=== PATIENT | female | born 1990 | race African-American/Black ===

== ENCOUNTER 2017-04-14 16:52 | Emergency (ER) | payer OTHER ==
[~2017-04-14] VITALS: Ht 167.6 cm; Wt 90.7 kg
[~2017-04-14 16:52] MED LIST: CIPRO500 M1 PO; FLAGYL500 MG PO; GOOD SENSE IBU200 MG PO; NORCO 5-325 TA1 EACH PO; TRAMADOL50 MG PO; VICODIN 300 MG-1 TAB PO; VICODIN 500 MG-1 TAB PO
[2017-04-14 17:05] VITALS: BP 156/89
--- NOTE | 2017-04-14 18:02 | ED THROAT/DENTAL COMPLAINT ---
History of Present Illness General Chief Complaint: Sore Throat, Dental Pain Stated Complaint: TOOTH PAIN Source: patient, old records Exam Limitations: no limitations Vital Signs & Intake/Output Vital Signs & Intake/Output Vital Signs Date Time Temp Pulse Resp B/P B/P Pulse O2 O2 Flow FiO2 Mean Ox Delivery Rate 04/14 1705 98.7 80 15 156/89 99 Room Air Room Air Allergies Coded Allergies: aripiprazole (From Abilify) (Severe, ITCHY/RESTLESS 04/14/17) adhesive tape (PAPER TAPE OK PER PT, OTHER TAPE TURNS SKIN RED 04/14/17) amphetamine (From Adderall) (HAND AND FEET SWELLING 04/14/17) dextroamphetamine (From Adderall) (HAND AND FEET SWELLING 04/14/17) latex (SWELLING, REDNESS AND BUMPS 04/14/17) Reconcile Medications Amoxicillin/Potassium Clav (Augmentin 875-125 Tablet) 875 MG-125 MG TABLET 1 TAB PO BID dental Amoxicillin/Potassium Clav (Augmentin 875-125 Tablet) 875 MG-125 MG TABLET 1 TAB PO BID dental Hydrocodone/Acetaminophen (Addison 5-325 Tablet) 5 MG-325 MG TABLET 1 TAB PO Q4- 6 PRN PRN pain Ibuprofen (Advil) 200 MG CAPSULE 4 CAP PO PRN PAIN (Reported) Triage Note: PT TO ED FOR C/C OF DENTAL PAIN IN R UPPER MOUTH. PT REPORTS SHE HAS A HOLE IN HER TOOTH. "I MAXED OUT ON MOTRIN AND THE PAIN IS STILL SO BAD IT'S MOVING TO MY FACE AND EYE NOW." PT DENIES DIFFICULTY SWALLOWING, DENIES FEVER/CHILLS. Triage Nurses Notes Reviewed? yes Onset: Abrupt Duration: day(s): (2), constant Timing: recent history Injury Environment: home Severity: moderate Severity Numbers: 10 Modifying Factors: Worsens With: eating. Associated Symptoms: DENIES : No Patient currently breastfeeds: No HPI: 26-year-old female presents complaining of right upper dental pain for the past 2 days after she states a filling came out of the tooth. She's had moderate to severe aching pain to her mouth since. Pain is worse with cold air eating drinking. She is been taking Avapro without improvement. She has not called her dentist yet. She denies any fever chills gingival swelling sore throat difficulty swallowing chest pain shortness of breath. No other associated symptoms,radiation of pain (NATHEN SALES) Past History Travel History Traveled to [place] past 21 day No Medical History Any Pertinent Medical History? 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 No (NATHEN SALES) Review of Systems Review of Systems Constitutional: Reports: see HPI. All Other Systems: Reviewed and Negative Comments Review of systems: See HPI, All other systems negative. Constitutional, no chills no fever, no malaise no weight loss HEENT: No visual changes no sore throat no congestion, no ear pain Cardiovascular: No chest pain , no palpitation , no orthopnea Skin: no rashes, no change in skin Respiratory: No dyspnea no cough no sputum no hemoptysis GI: No nausea no vomiting, no diarrhea, no bloating/constipation : No dysuria No hematuria, no frequency, no discharge Muscle skeletal: No joint pain, no joint swelling, no back pain, no neck pain, Neurologic: No numbness no confusion, no headache Psych: No stress no depression,. Heme/endocrine: No bruising no bleeding Immunology: No lymphadenopathy (NATHEN SALES) Physical Exam Physical Exam General Appearance: well developed/nourished, no apparent distress, alert, awake Mouth/Throat: dental tenderness Comments: Well-developed well-nourished patient in no apparent distress. Head/Face: Atraumatic, no maxillary/frontal sinus tenderness, no facial swelling Eyes: PERRL, EOMI, Ear:External auditory canals clear, no erythema Nose: atraumatic.Normal inspection: Throat: Moist mucous membranes.Pharynx normal. No pharyngeal erythema/exudate seen. No stridor/drooling or assymetry. No swelling or edema. Right upper dental tenderness no gingival swelling no trismus Neck: Supple,, FROM Back: FROM Cardiovascular: Regular rate and rhythms no murmurs rub Respiratory: Chest nontender.There were no bony deformities, no asymmetry. No respiratory distress. Patient speaking in full complete sentences. Breath sounds clear to auscultation bilaterally: NO W/R/R Extremities: full range of motion Neuro: awake, alert, and oriented to person, place and time. There were no obvious focal neurologic abnormalities. Skin: Warm & dry;No appreciable rash on exposed skin Psych: Mood affect normal, normal memory normal judgment. Core Measures ACS in differential dx? No Severe Sepsis Present: No Septic Shock Present: No (NATHEN SALES) Progress Differential Diagnosis: epiglottitis, Ludwigs angina, odontogenic abscess, poornima- tonsillar abscess, stomatitis/gingivitis, tooth fracture Plan of Care: I discussed with the patient at length all of their results. I had an extensive conversation regarding need for close follow up with their dentist this week as well as return precautions. I answered all of their questions, they feel comfortable with the plan and follow-up care. I discussed with the patient/family the medications that they will receive. I gave them signs and symptoms that could indicate an adverse reaction. I have advised them to limit their activities until they can see how they respond to the medication. (NATHEN SALES) Departure Departure Time of Disposition: 1807 Disposition: HOME OR SELF CARE Condition: Stable Clinical Impression Primary Impression: Pain, dental Referrals: PATIENT HAS NO PRIMARY CARE DR (PCP/Family) Additional Instructions: Follow-up with your dentist tomorrow. Augmentin as discussed ibuprofen 838 hours. Vicodin for breakthrough pain this will make you drowsy it is a narcotic and highly addictive no driving or drinking alcohol while taking this was sent to [facility] Departure Forms: Customer Survey General Discharge Information Prescriptions: Current Visit Scripts Amoxicillin/Potassium Clav (Augmentin 875-125 Tablet) 1 TAB PO BID #14 TAB Amoxicillin/Potassium Clav (Augmentin 875-125 Tablet) 1 TAB PO BID #14 TAB Hydrocodone/Acetaminophen (Addison 5-325 Tablet) 1 TAB PO Q4-6 PRN PRN pain #10 TAB (NATHEN SALES) PA/BUSINESS RULES DEVELOPER Co-Sign Statement Statement: ED Attending supervision documentation- [] I saw and evaluated the patient. I have also reviewed all the pertinent lab results and diagnostic results. I agree with the findings and the plan of care as documented in the PA's/BUSINESS RULES DEVELOPER's documentation. [X] I have reviewed the ED Record and agree with the PA's/BUSINESS RULES DEVELOPER's documentation. [] Additions or exceptions (if any) to the PAs/BUSINESS RULES DEVELOPER's note and plan are summarized below: [] (LUNA WALLACE,NICOLE Molina)
[2017-04-14] MEDS ORDERED: ADVIL200 M1 PO (18:03)
[2017-04-14] MEDS ORDERED: AUGMENTIN 875-1 EACH PO ×2 (18:09→18:28)
[2017-04-14] MEDS ORDERED: NORCO 5-325 TA1 EACH PO ×2 (18:09→18:28)
== END 2017-04-14 18:18 ==
LOC: ERH 16:52
DX: K08.89 Other specified disorders of teeth and supporting structures (principal)

== ENCOUNTER 2018-02-25 10:08 | Emergency (ER) | payer OTHER ==
[~2018-02-25] VITALS: Ht 167.6 cm; Wt 90.7 kg
[~2018-02-25 10:08] MED LIST changes: +ADVIL200 M1 PO; +AUGMENTIN 875-1 EACH PO
--- NOTE | 2018-02-25 11:19 | ED UPPER/LOWER EXTREMITY COMPL ---
History of Present Illness General Chief Complaint: Upper Extremity Injury Stated Complaint: RT ARM/SHOULDER PAION S/P FALL Source: patient Exam Limitations: no limitations Vital Signs & Intake/Output Vital Signs & Intake/Output Vital Signs Date Time Temp Pulse Resp B/P B/P Pulse O2 O2 Flow FiO2 Mean Ox Delivery Rate 02/25 1317 98.2 69 16 120/64 100 Room Air 02/25 1019 98.6 79 18 142/85 98 Room Air Allergies Coded Allergies: aripiprazole (From Abilify) (Severe, ITCHY/RESTLESS 04/14/17) adhesive tape (PAPER TAPE OK PER PT, OTHER TAPE TURNS SKIN RED 04/14/17) amphetamine (From Adderall) (HAND AND FEET SWELLING 04/14/17) dextroamphetamine (From Adderall) (HAND AND FEET SWELLING 04/14/17) latex (SWELLING, REDNESS AND BUMPS 04/14/17) Reconcile Medications Cyclobenzaprine HCl 10 MG TABLET 1 TAB PO TID SPASMS Ibuprofen 800 MG TABLET 1 TAB PO TID pain Triage Note: 27 YO FEMALE TO TRIAGE C/O R SHOULDER/UPPER & LOWER ARM/HAND PAIN SINCE YESTERDAY S/P FALL. STATES SHE TRIPPED AND LANDED WITH HER HANDS DOWN ON THE GROUND. DENIES HEADSTRIKE. PT REFUSING SHOULDER SLING IN TRIAGE, STATES IT MAKES IT HURT MORE. DENIES CHANCE OF , JUST FININSHED MENSES Triage Nurses Notes Reviewed? yes Onset: Abrupt Timing: recent history No Modifying Factors: none HPI: 27-year-old female comes into the emergency room for further evaluation of pain to her right shoulder right elbow right wrist and right hand. Patient reports that she fell yesterday. She came down on her right arm. She has significant pain. Difficulty lifting. She also complains of some pain to her right rib area. She denies hitting her head. Denies any neck pain. Denies any pain anywhere else. Sharp. Continuous. Past History Travel History Traveled to [place] past 21 day No Medical History Any Pertinent Medical History? 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 No Review of Systems Review of Systems Constitutional: Reports: no symptoms. EENTM: Reports: no symptoms. Respiratory: Reports: no symptoms. Cardiovascular: Reports: no symptoms. Gastrointestinal/Abdominal: Reports: no symptoms. Genitourinary: Reports: no symptoms. Musculoskeletal: Reports: see HPI. Skin: Reports: no symptoms. Neurological/Psychological: Reports: no symptoms. Hematologic/Endocrine: Reports: no symptoms. Immunological: Reports: no symptoms. All Other Systems: Reviewed and Negative Physical Exam Physical Exam General Appearance: well developed/nourished, mild distress Head: atraumatic Eyes: Bilateral: normal appearance. Ears, Nose, Throat: normal ENT inspection, hearing grossly normal Neck: normal inspection Cardiovascular/Respiratory: no respiratory distress Back: normal inspection Shoulder Right: soft tissue tenderness, limited range of motion Elbow Right: soft tissue tenderness, limited range of motion Neurologic/Tendon: normal sensation, normal motor functions, normal tendon functions, responds to pain, no evidence tendon injury, no pulse deficit Skin: intact, normal color, warm/dry Progress Differential Diagnosis: contusion, dislocation, fracture, septic arthritis, sprain, tendon injury Plan of Care: Orders Procedure Date/time Status Durable Medical Equipment 02/25 1331 Active URINE 02/25 1020 Complete Laboratory Tests 02/25/18 1028: Urine Test NEGATIVE Diagnostic Imaging: Viewed by Me: Radiology Read. Discussed w/RAD: Radiology Read. Radiology Impression: PATIENT: ULISSES DAN PRESENT AGE: 27 PATIENT ACCOUNT NO: [id number] : 91 LOCATION: [facility] ORDERING PHYSICIAN: Honorio CORONA SERVICE DATE: 02/25/18 EXAM TYPE : RAD - XRY-ELBOW 3 OR MORE VIEWS, R; XRY-FOREARM, RIGHT; XRY-HAND TWO VIEWS R EXAMINATION: XR ELBOW, RIGHT XR FOREARM, RIGHT XR HAND, RIGHT CLINICAL INFORMATION: Status post fall. Right upper extremity pain. COMPARISON: None TECHNIQUE: Right elbow 4 views; AP, bilateral oblique and lateral. Right forearm 2 views; AP and lateral. Right hand 2 views; PA and lateral. FINDINGS: Right elbow: No evidence of acute fracture or dislocation. No evidence of joint effusion. No abnormality of the bones, joints or soft tissues is demonstrated. Right forearm: No evidence of fracture or dislocation. The osseous structures and soft tissues are unremarkable. Wrist joint is in normal alignment. Right hand: No evidence of acute fracture or dislocation. No abnormality of the bones, joints or soft tissues is demonstrated. IMPRESSION: No evidence of acute fracture or dislocation in the right elbow, right forearm and right hand. No evidence of radiopaque foreign body or soft tissue air. DICTATED BY: Oziel Pearce MD DATE/TIME DICTATED:02/25/181248 GROOVER RUNNER:VIRIDIANA DATE/TIME TRANSCRIBED:02/25/181248 CONFIDENTIAL, DO NOT COPY WITHOUT APPROPRIATE AUTHORIZATION. <Electronically signed in Other Vendor System> SIGNED BY: Oziel Pearce MD 02/25/18 1256, PATIENT: ULISSES DAN PRESENT AGE: 27 PATIENT ACCOUNT NO: [id number] : 91 LOCATION: ER ORDERING PHYSICIAN: Honorio CORONA SERVICE DATE: 02/25/18 EXAM TYPE : RAD - XRY-RIBS UNILATERAL-RIGHT EXAMINATION: XR RIBS, RIGHT CLINICAL INFORMATION: Fall. Pain everywhere. Cannot localize COMPARISON: None TECHNIQUE: PA view of the chest with AP and oblique views of the right ribs FINDINGS: Lungs are clear. No consolidation, pneumothorax, or pleural effusion. The cardiomediastinal silhouette and pulmonary vasculature are normal. Osseous structures are unremarkable. Ribs are intact. No fractures are identified. IMPRESSION: No acute pulmonary disease. No rib fracture seen. DICTATED BY: Gennaro Little MD DATE/TIME DICTATED:02/25/181307 GROOVER RUNNER:VIRIDIANA DATE/TIME TRANSCRIBED:02/25/181307 CONFIDENTIAL, DO NOT COPY WITHOUT APPROPRIATE AUTHORIZATION. <Electronically signed in Other Vendor System> SIGNED BY: Gennaro Little MD 02/25/18 1312, PATIENT: ULISSES DAN PRESENT AGE: 27 PATIENT ACCOUNT NO: [id number] : 91 LOCATION: ER ORDERING PHYSICIAN: Honorio CORONA SERVICE DATE: 02/25/181117 EXAM TYPE: RAD - XRY-SHOULDER COMPLETE-RIGHT EXAMINATION: XR SHOULDER, RIGHT CLINICAL INFORMATION: Status post fall. Right shoulder pain. COMPARISON: None TECHNIQUE: Internal rotation, Grashey and transscapular views of the right shoulder. FINDINGS: The bones and soft tissues are normal. No fracture. Glenohumeral and acromioclavicular alignment is anatomic with normal joint space. No abnormal soft tissue calcifications. IMPRESSION: No evidence of acute fracture or dislocation in the right shoulder. DICTATED BY: Oziel Pearce MD DATE/ TIME DICTATED:02/25/181241 GROOVER RUNNER:VIRIDIANA DATE/TIME TRANSCRIBED: 02/25/181241 CONFIDENTIAL, DO NOT COPY WITHOUT APPROPRIATE AUTHORIZATION. < Electronically signed in Other Vendor System> SIGNED BY: Oziel Pearce MD 02/09 Departure Departure Disposition: HOME OR SELF CARE Condition: Stable Clinical Impression Primary Impression: Sprain of right shoulder Secondary Impressions: Sprain of right hand Referrals: Patient Has No Primary Care Dr (PCP/Family) Mikel WALLACE,Gatito Molina Additional Instructions: Take ibuprofen and Flexeril as prescribed. Follow-up with your primary care doctor. Return if any concerns worsening symptoms. Please go over all results of today's visit with your primary care doctor. Contact your primary care doctor to let them know you were here in the emergency room. There may be nonspecific findings which may not be related to your visit today here in the emergency room but may require further evaluation and chronic monitoring by your primary care doctor. If you had a laceration today the chance of foreign body always remains. You should follow-up with your primary care doctor for recheck in 3-5 days for a wound check. If you had an x-ray done there is a chance that a fracture could have been missed on initial read and you should follow-up with your primary care doctor for repeat x-rays if symptoms persist. If your blood pressure was elevated here in the emergency room please have rechecked by [facility] primary care doctor within the next 48. If you were prescribed a narcotic here in the emergency room or any type of controlled substances you're not allowed to drive while taking this medication or operate any type of heavy machinery. Narcotics can make you feel lightheaded dizziness nausea and can cause constipation. You may need to picking machine operator helper a stool softener. Thank you for choosing [facility] emergency room. Please return to the emergency room immediately if you have any other concerns worsening of symptoms. Departure Forms: Customer Survey General Discharge Information Prescriptions: Current Visit Scripts Ibuprofen 1 TAB PO TID #30 TAB Cyclobenzaprine HCl 1 TAB PO TID #30 TAB Procedures Splinting Location: right shoulder/wrist Pre-Made Type: velcro Splint: thumb spica, wrist, shoulder immobilizer Splint Applied By: splint applied by me Pre-Proc Neuro Vasc Exam: normal Post-Proc Neuro Vasc Exam: normal
--- NOTE | 2018-02-25 12:52 | RADIOLOGY REPORT ---
EXAMINATION: XR SHOULDER, RIGHT CLINICAL INFORMATION: Status post fall. Right shoulder pain. COMPARISON: None TECHNIQUE: Internal rotation, Grashey and transscapular views of the right shoulder. FINDINGS: The bones and soft tissues are normal. No fracture. Glenohumeral and acromioclavicular alignment is anatomic with normal joint space. No abnormal soft tissue calcifications. IMPRESSION: No evidence of acute fracture or dislocation in the right shoulder.
--- NOTE | 2018-02-25 12:56 | RADIOLOGY REPORT ---
EXAMINATION: XR ELBOW, RIGHT XR FOREARM, RIGHT XR HAND, RIGHT CLINICAL INFORMATION: Status post fall. Right upper extremity pain. COMPARISON: None TECHNIQUE: Right elbow 4 views; AP, bilateral oblique and lateral. Right forearm 2 views; AP and lateral. Right hand 2 views; PA and lateral. FINDINGS: Right elbow: No evidence of acute fracture or dislocation. No evidence of joint effusion. No abnormality of the bones, joints or soft tissues is demonstrated. Right forearm: No evidence of fracture or dislocation. The osseous structures and soft tissues are unremarkable. Wrist joint is in normal alignment. Right hand: No evidence of acute fracture or dislocation. No abnormality of the bones, joints or soft tissues is demonstrated. IMPRESSION: No evidence of acute fracture or dislocation in the right elbow, right forearm and right hand. No evidence of radiopaque foreign body or soft tissue air.
--- NOTE | 2018-02-25 13:12 | RADIOLOGY REPORT ---
EXAMINATION: XR RIBS, RIGHT CLINICAL INFORMATION: Fall. Pain everywhere. Cannot localize COMPARISON: None TECHNIQUE: PA view of the chest with AP and oblique views of the right ribs FINDINGS: Lungs are clear. No consolidation, pneumothorax, or pleural effusion. The cardiomediastinal silhouette and pulmonary vasculature are normal. Osseous structures are unremarkable. Ribs are intact. No fractures are identified. IMPRESSION: No acute pulmonary disease. No rib fracture seen.
[2018-02-25 13:17] VITALS: BP 120/64
[2018-02-25] MEDS ORDERED: IBUPROFEN800 M1 PO (13:31)
[2018-02-25] MEDS ORDERED: CYCLOBENZAPRINE10 M1 PO (13:31)
== END 2018-02-25 14:23 ==
LOC: ERH 10:08
DX: S43.401A Unspecified sprain of right shoulder joint, initial encounter (principal); S63.91XA Sprain of unspecified part of right wrist and hand, initial encounter; W19.XXXA Unspecified fall, initial encounter; Y92.9 Unspecified place or not applicable; Y93.9 Activity, unspecified
CPT/HCPCS: 71100-RT; 73030-RT; 73080-RT; 73090-RT; 73120-RT; 81025; 96372; J1885